=== PATIENT | male | born 1970 | race Caucasian/White ===

== ENCOUNTER 2019-08-15 11:11 | Day surgery (SDC) | payer OTHER ==
[~2019-08-15] VITALS: Ht 180.3 cm; Wt 103.6 kg
[~2019-08-15 11:11] MED LIST: CYAN1000VL IM; LANS30CA PO; LOSA50TA88 PO; NS 1,000 ML IV ONE; SERT-138 PO
[2019-08-15] MEDS ORDERED: LIDOCAINE 2% INJ 100 MG/5 ML SDV (FOR ANES.) As Ordered ONE (12:25)
[2019-08-15] MEDS ORDERED: PROPOFOL 200 MG/20 ML VIAL As Ordered ONE ×2 (12:25→13:36)
--- NOTE | 2019-08-15 13:14 | ROOR ---
Patient Name: Lio Cedeno Procedure Date: 08/15/2019 12:55 PM Date of : 1970 Age: 49 Room: [facility] Gender: Male Note Status: Finalized Procedure: Upper Endoscopy + Biopsies Indications: Heartburn, Exclusion of Hoover's esophagus, Follow-up of Hoover's esophagus Providers: Emanuel Garcia MD Referring MD: [facility], Admin. Requesting Provider: Medicines: Monitored Anesthesia Care Complications: No immediate complications. Procedure: Pre-Anesthesia Assessment: - The heart rate, respiratory rate, oxygen saturations, blood pressure, adequacy of pulmonary ventilation, and response to care were monitored throughout the procedure. The Endoscope was introduced through the mouth, and advanced to the second part of duodenum. The upper GI endoscopy was accomplished without difficulty. The patient tolerated the procedure well. Findings: The Z-line was irregular and was found 40 cm from the incisors. Multiple biopsies were obtained with cold forceps for evaluation to rule out Hoover's Esophagus randomly at the gastroesophageal junction. No other significant abnormalities were identified in a careful examination of the stomach. The exam of the duodenum was otherwise normal. Impression: - Z-line irregular, 40 cm from the incisors. - Multiple biopsies were obtained at the gastroesophageal junction. - The examination was otherwise normal. Recommendation: - Patient has a contact number available for emergencies. The signs and symptoms of potential delayed complications were discussed with the patient. Return to normal activities tomorrow. Written discharge instructions were provided to the patient. - High fiber diet. - Discharge patient to home. - Follow an antireflux regimen. - Continue present medications. - Await pathology results. - Telephone GI clinic for pathology results in 1 week. - Return to referring physician. - The findings and recommendations were discussed with the patient's family. Emanuel Garcia MD Emanuel Garcai MD 08/15/2019 1:14:16 PM Electronically signed by Emanuel Garcia MD Number of Addenda: 0 Note Initiated On: 08/15/2019 12:55 PM Estimated Blood Loss: Estimated blood loss: none.
[2019-08-15 13:47] VITALS: BP 132/83
== END 2019-08-15 13:49 | disposition home or self-care (01) ==
LOC: M OPP 11:11
PROVIDERS: ATTEND Internal Medicine Gastroenterology
DX: K22.8 Other specified diseases of esophagus (principal); K22.70 Barrett's esophagus without dysplasia; R12 Heartburn; G47.30 Sleep apnea, unspecified; Z79.899 Other long term (current) drug therapy; Z87.891 Personal history of nicotine dependence

== ENCOUNTER → 2020-06-20 | Outpatient (CLI) | payer OTHER ==
[~2020-06-20] MED LIST changes: -NS 1,000 ML IV ONE
--- NOTE | 2020-06-20 15:34 | REPVR ---
PROCEDURE INFORMATION: Exam: MR Cervical Spine Without Contrast Exam date and time: 06/20/2020 2:58 PM Age: 50 years old Clinical indication: Neck pain; Additional info: Cervicalgia TECHNIQUE: Imaging protocol: Multiplanar magnetic resonance images of the cervical spine without contrast. COMPARISON: No relevant prior studies available. FINDINGS: Vertebrae: Unremarkable. Spinal cord: The spinal cord is normal. C2-C3: No significant disc disease. No significant spinal stenosis. C3-C4: The C3-C4 level demonstrates a small diffuse posterior disc herniation. There is mild right uncovertebral spurring and foraminal stenosis. C4-C5: No significant disc disease. No significant spinal stenosis. C5-C6: The C5-C6 level demonstrates a small diffuse posterior disc herniation. There is moderate left uncovertebral spurring and foraminal stenosis. C6-C7: The C6-C7 level demonstrates a small diffuse posterior disc herniation. There is mild right and moderate left uncovertebral spurring and foraminal compromise. C7-T1: No significant disc disease. No significant spinal stenosis. Brain: The brainstem is normal. The cerebellum is normal. Vertebral arteries: Expected flow voids in the vertebral arteries. Soft tissues: Unremarkable. IMPRESSION: 1. The C3-C4 level demonstrates a small diffuse posterior disc herniation. There is mild right uncovertebral spurring and foraminal stenosis. 2. The C5-C6 level demonstrates a small diffuse posterior disc herniation. There is moderate left uncovertebral spurring and foraminal stenosis. 3. The C6-C7 level demonstrates a small diffuse posterior disc herniation. There is mild right and moderate left uncovertebral spurring and foraminal compromise. Electronically signed by: Shola Truong On 06/20/2020 15:34:00 PM
== END ==
LOC: M RAD 14:07
PROVIDERS: ATTEND Internal Medicine Hematology & Oncology
DX: M50.21 Other cervical disc displacement, high cervical region (principal); M50.222 Other cervical disc displacement at C5-C6 level; M50.223 Other cervical disc displacement at C6-C7 level

== ENCOUNTER → 2020-07-11 | Outpatient (CLI) | payer OTHER ==
[~2020-07-11] MED LIST changes: +PROHANCE 279.3MG/ML 15ML VIAL As Ordered ONE; +PROHANCE 279.3MG/ML 5ML VIAL As Ordered ONE
--- NOTE | 2020-07-11 17:07 | REP ---
INDICATION: LIVER LESION. COMPARISON: None. TECHNIQUE: Multiple sequences obtained in the axial and coronal planes prior to and following the intravenous administration of 20 mL ProHance. FINDINGS: There is a reported history of an enhancing lesion at the dome of the liver. At the dome of the liver in the right lobe laterally a hyperintense lobulated liver nodule is seen on T2 weighted images. Following the intravenous administration of gadolinium there is peripheral nodular enhancement with filling in centrally, gradually. This is consistent with a hemangioma. Approximate diameter is 1.9 cm. No other liver lesion is seen. There is diffuse fatty infiltration of the liver. The gallbladder is unremarkable with no filling defect or wall thickening. There is no evidence of biliary dilatation. Spleen is normal in size with no intrinsic abnormality. The adrenal glands are normal. The pancreas is unremarkable no mass or evidence of pancreatic duct dilatation. There is a nonenhancing cyst in the upper pole the left kidney which measures 2.2 cm in diameter. A lobulated benign appearing cyst in the upper pole of the left kidney measures 2.7 x 1.9 cm. Another cyst is partially imaged in the mid left kidney. There is no adenopathy or free fluid in the visualized abdomen. IMPRESSION: Liver lesion in the right lobe superiorly at the dome represents a benign hemangioma 1.9 cm in diameter. There is diffuse fatty infiltration of the liver. Bilateral renal cysts. <Electronically signed by Gentry Lambert > 07/11/20 [id number]
== END ==
LOC: M RAD 13:31
PROVIDERS: ATTEND Family Medicine
DX: K76.9 Liver disease, unspecified (principal)
CPT/HCPCS: 74183; A9576

== ENCOUNTER 2024-02-13 06:58 | Day surgery (SDC) | payer OTHER ==
[~2024-02-13] VITALS: Ht 182.9 cm; Wt 105.2 kg
[~2024-02-13 06:58] MED LIST changes: +B-12100020 IM; +CHLO125TA PO; +CYAN2500 PO; +ESOM20CA2 PO; +LOSA100T46 PO; +LOSA50TA28 PO; -LOSA50TA88 PO; +NS 1,000 ML IV ONE; -PROHANCE 279.3MG/ML 15ML VIAL As Ordered ONE; -PROHANCE 279.3MG/ML 5ML VIAL As Ordered ONE; +VITA100093 PO; +ZOLO100T PO
[2024-02-13] MEDS ORDERED: LIDOCAINE 2% 100MG/5ML SDV (FOR ANES.) As Ordered ONE (07:20)
[2024-02-13] MEDS ORDERED: propofoL 200 MG/20 ML VIAL As Ordered ONE (07:20)
[2024-02-13 08:59] VITALS: BP 156/81; O2SAT 95
== END 2024-02-13 08:58 | disposition home or self-care (01) ==
LOC: M OPP 06:58
PROVIDERS: ATTEND Internal Medicine Gastroenterology
DX: Z12.11 Encounter for screening for malignant neoplasm of colon (principal); K64.0 First degree hemorrhoids; K31.89 Other diseases of stomach and duodenum; R12 Heartburn; G47.30 Sleep apnea, unspecified; Z99.89 Dependence on other enabling machines and devices; Z87.891 Personal history of nicotine dependence; Z79.899 Other long term (current) drug therapy